=== PATIENT | female | born 1995 | race Caucasian/White ===

== ENCOUNTER 2022-04-20 12:12 | Emergency (ER) | payer OTHER, MEDICAID, SELFPAY ==
[2022-04-20 12:12] VITALS: BP 162/100; PULSE 70; RESP 16; TEMP 36.4; O2SAT 98; BMI 23.9
--- NOTE | 2022-04-20 12:22 | CT_ITS ---
EXAM: CT ABDOMEN AND PELVIS WITHOUT INTRAVENOUS CONTRAST CLINICAL INDICATION: Right abdominal pain for years. TECHNIQUE: Helically acquired images were obtained of the abdomen and pelvis without intravenous contrast. This CT exam was performed using one or more of the following dose reduction techniques: automated exposure control, adjustment of the mA and/or kV according to patient size, and/or use of iterative reconstruction technique. This report was created using [employer] report generation technology. RADIATION DOSE: CTDIvol = 6.22 mGy, DLP = 279.77 mGy-cm COMPARISON: None. FINDINGS: LOWER THORAX: Unremarkable. Lung bases are clear. No cardiomegaly. No significant pericardial effusion. ABDOMEN: LIVER: Unremarkable. Homogeneous. GALLBLADDER AND BILE DUCTS: Suspicious prominent 2 cm hypodense gallstone with faint rim calcification in the gallbladder neck. No gallbladder dilatation. No pericholecystic fluid. PANCREAS: Unremarkable. No focal cystic mass. SPLEEN: Unremarkable. Normal size without focal cystic or solid mass. ADRENALS: Unremarkable. No nodules. KIDNEYS AND URETERS: Unremarkable. Normal renal size and position. No hydronephrosis. STOMACH AND BOWEL: Unremarkable. No stomach or bowel distention. No focal inflammatory change. PELVIS: APPENDIX: Normal. BLADDER: Unremarkable. REPRODUCTIVE: Unremarkable as visualized. No mass. ABDOMEN and PELVIS: INTRAPERITONEAL SPACE: Unremarkable. No ascites or other fluid collection. No free air. BONES/JOINTS: Unremarkable. No suspicious lytic or blastic abnormality. SOFT TISSUES: Unremarkable. No discrete abdominal or pelvic wall hernia. VASCULATURE: Unremarkable. Abdominal aorta is non-dilated. LYMPH NODES: Unremarkable. No enlarged lymph nodes. CT/Abdomen/Pelvis without Cont IMPRESSION: Suspicious 2 cm hypodense gallstone in the gallbladder neck with faint rim calcification. Gallbladder ultrasound will be helpful for further evaluation. Electronically Signed: Morales Rubio MD at 13:16 EST ,
--- NOTE | 2022-04-20 12:23 | ED.VIS.GI ---
HPI HPI - GI History of Present Illness Chief Complaint: Abd Pain Detail of Chief Complaint: Abdominal pain Informant: patient Narrative Narrative: Patient presents with abdominal pain is been going on for several years off-and-on. Over the last few months she states the pain is more frequent and typically is the right side of her abdomen. Patient had an episode this morning that was severe and lasted about an hour and so she comes in for evaluation. Her pain is currently resolved. She has not missed a menstrual period and her last 1 was about a week ago. She denies any fever. She denies vomiting although intermittently she has had some nausea. She has not noticed that food affects the pain at all. Patient denies urinary symptoms. Prior similar symptoms: Yes PFSH [facility] Medical History (Updated 04/20/22 @ 16:[address] Tristan Bunch DO) Shingles rash Home Medications methylprednisolone 4 mg tablets in a dose pack (Medrol (Todd)) See Rx Instructions PO PER PKG DIR #21 tabs 07/05/20 [Rx Last Taken Unknown] valacyclovir 1 gram tablet 1,000 mg PO TID #21 tabs 07/05/20 [Rx Last Taken Unknown] Allergy/AdvReac Type Severity Reaction Status Date / Time No Known Allergies Allergy Verified 04/20/22 12:14 Surgical History (Updated 07/05/20 @ 12:20 by Kari Tovar RN) History of tonsillectomy Social History Smoking Status: Never smoker ROS ROS ED Review of Systems ROS Unobtainable: other Constitutional Constitutional ED: Reports lethargy; Denies chills, fever(s), sweats or weight loss Eyes Eyes: Denies blurry vision, change in vision or diplopia ENT ENT ED: Denies rhinorrhea or sore throat Cardiovascular Cardiovascular: Denies chest pain, orthopnea or racing heartbeat Respiratory/Chest Respiratory/Chest: Denies cough, dyspnea, dyspnea on exertion, orthopnea or sputum Gastrointestinal Gastrointestinal: Reports abdominal pain and nausea; Denies diarrhea or vomiting Genitourinary Genitourinary ED: Denies dysuria, hematuria or urinary frequency Musculoskeletal Musculoskeletal: Denies arthralgias, back pain, myalgias or neck pain Integumentary Denies abscess, Abrasions or rash Neurologic Neurologic: Denies headache(s) or weakness Psychiatric Psychiatric: Denies anxiety, depression or suicidal thoughts Endocrine Endocrinology: Denies polydipsia, polyphagia or polyuria Hematologic/Lymphatic Hematologic/Lymphatic: Denies easy bleeding, easy bruising or lymphadenopathy Allergic/Immunologic Allergic/Immunologic ED: Denies mouth swelling, tongue swelling or urticaria EXAM Physical Exam Const Vital Signs: 04/20/22 12:12 Temperature 97.6 F L Temperature Source Temporal Pulse Rate 70 Respiratory Rate 16 Blood Pressure 162/100 H Blood Pressure Mean 120 Pulse Ox 98 Oxygen Delivery Method Room Air Positive well nourished and well developed General Appearance ED: well developed and NAD HEENT Reports TM's clear and moist mucous membranes normocephalic and atraumatic; Negative for trauma or tenderness Tympanic Membrane ED: Yes TM's clear Eyes PERRL and EOMs intact bilaterally General Eye ED: Negative for pale conjunctiva or scleral icterus Neck no lymphadenopathy, supple and no JVD General: Negative for tenderness Chest Wall inspection of chest normal and palpation of chest normal Chest: Negative for tenderness Resp normal respiratory effort and clear to auscultation bilaterally Effort and Inspection: Negative for respiratory distress or pain with movement Auscultation: Negative for rhonchi, wheezes or diminished lung sounds Cardio regular rate, regular rhythm, S1 normal heart sound, S2 normal heart sound and no murmurs Peripheral Pulses: pulses 2+ throughout GI normal to inspection, nondistended, normoactive bowel sounds, soft to palpation, non-distended and no masses GI Narrative: Mild tenderness over right lower quadrant with some guarding. There is no rebound, rigidity, or. Signs. She has a negative Cobos sign. No significant tenderness to the right upper quadrant. Back/Spine no CVA tenderness and no thoracic nor lumbar tenderness Extremity normal to inspection General Extremety ED: Negative for edema General Extremity: Negative for edema Neuro oriented x3, CN's II-XII intact bilaterally, no sensory deficits noted and gait normal Sensorium / Orientation: awake, alert, oriented to person, oriented to place and oriented to time Motor Exam: strength 5/5 throughout and strength abnormal Psych mental status grossly normal Skin no rashes or lesions noted and no wounds MDM MDM MDM Narrative Medical decision making narrative: We will establish on arrival. Patient did not require anything for pain as her pain had resolved. Her initial exam was quite benign but she had some nondescript discomfort to the right side of the abdomen diffusely. CBC with differential was normal. LFTs were normal. Lipase was normal. hCG was negative. Urinalysis was unremarkable. CT scan of the abdomen pelvis initially obtained showed possible gallstones in the neck of the gallbladder and they recommended obtaining an ultrasound to evaluate further. Gallbladder ultrasound performed showed cholelithiasis with wall thickening but no sonographic evidence of biliary obstruction or definite acute cholecystitis. Patient remains pain-free in the department. I suspect her symptoms likely related to cholelithiasis. I discussed case with general surgeon on-call Dr. Annette Merida who will have patient follow-up with her as an outpatient for further evaluation. Patient comfortable with plan. She is advised to avoid spicy and greasy foods. Lab Data Attestation: I reviewed the patient's lab results. Labs: Laboratory Results - last 24 hr 04/20/22 04/20/22 04/20/22 12:30 12:30 12:30 WBC 7.9 RBC 4.51 Hgb 12.6 Hct 39.1 MCV 86.7 MCH 27.9 MCHC 32.2 RDW Std Deviation 38.1 RDW Coeff of Anita 12.0 Plt Count 329 MPV 9.1 Immature Gran % (Auto) 0.300 Neut % (Auto) 69.7 Lymph % (Auto) 22.7 Dukes % (Auto) 5.1 Eos % (Auto) 1.4 Baso % (Auto) 0.8 Absolute Neuts (auto) 5.5 Absolute Lymphs (auto) 1.80 Nucleated RBC % 0 Sodium 138 Potassium 4.1 Chloride 108 H Carbon Dioxide 26.0 Anion Gap 4 L BUN 12 Creatinine 0.72 Estim Creat Clear Calc 95.37 Est GFR (MDRD) Af Amer 122 Est GFR (MDRD) Non-Af 101 BUN/Creatinine Ratio 16.6 Glucose 118 H Calcium 8.7 Total Bilirubin 0.30 AST 10 L ALT 14 Alkaline Phosphatase 59 Total Protein 7.3 Albumin 3.8 Globulin 3.5 Albumin/Globulin Ratio 1.1 Lipase 143 Serum , Qual NEGATIVE Urine Color Urine Clarity Urine pH Ur Specific [place] Urine Protein Urine Glucose (UA) Urine Ketones Urine Occult Blood Urine Nitrite Urine Bilirubin Urine Urobilinogen Ur Leukocyte Esterase Urine RBC Urine WBC Ur Squamous Epith Cells Urine Bacteria Urine Mucus 04/20/22 12:35 WBC RBC Hgb Hct MCV MCH MCHC RDW Std Deviation RDW Coeff of Anita Plt Count MPV Immature Gran % (Auto) Neut % (Auto) Lymph % (Auto) Dukes % (Auto) Eos % (Auto) Baso % (Auto) Absolute Neuts (auto) Absolute Lymphs (auto) Nucleated RBC % Sodium Potassium Chloride Carbon Dioxide Anion Gap BUN Creatinine Estim Creat Clear Calc Est GFR (MDRD) Af Amer Est GFR (MDRD) Non-Af BUN/Creatinine Ratio Glucose Calcium Total Bilirubin AST ALT Alkaline Phosphatase Total Protein Albumin Globulin Albumin/Globulin Ratio Lipase Serum , Qual Urine Color Yellow Urine Clarity Sl. Cloudy Urine pH 6.0 Ur Specific [place] 1.020 Urine Protein 15 H Urine Glucose (UA) Normal Urine Ketones Negative Urine Occult Blood 10 H Urine Nitrite Negative Urine Bilirubin Negative Urine Urobilinogen Normal Ur Leukocyte Esterase 500 H Urine RBC 0 SEEN Urine WBC 5-10 SEEN Ur Squamous Epith Cells 0-5 SEEN Urine Bacteria 1+ Urine Mucus 0 SEEN Radiography Diagnostic Testing: Clinical Impression(s) from Imaging Studies Abdomen/Pelvis CT 04/20/22 12:22 IMPRESSION: Suspicious 2 cm hypodense gallstone in the gallbladder neck with faint rim calcification. Gallbladder ultrasound will be helpful for further evaluation. Electronically Signed: Morales Rubio MD at 13:16 EST , Gallbladder Ultrasound 04/20/22 13:25 IMPRESSION: Cholelithiasis with wall thickening. No sonographic evidence of biliary obstruction or definite acute cholecystitis. Electronically Signed: Shahzad Reyes MD at 15:59 EST , Discharge Plan Triage Chief Complaint: Abd Pain ED Provider: Tristan Bunch Dx/Rx/DC Orders Clinical Impression: Abdominal pain, Cholelithiasis Instructions: Gallstones Dc, ED Gallstones with Biliary Colic Prescriptions: No Action valacyclovir 1 gram tablet 1,000 mg PO TID Qty: 21 0RF methylprednisolone [Medrol (Todd)] 4 mg tablets,dose pack See Rx Instructions PO PER PKG DIR Qty: 21 0RF Rx Instructions: PO PER PKG DIR Primary Care Provider: Angelo Blair Referrals: Angelo Blair MD [Primary Care Provider] - Annette Merida MD [Med Staff - Active Staff] - 3-5 Days Disposition Disposition: Home, Self Care
[2022-04-20 12:38] LABS: Absolute Neutrophil Count 5.5 X10^3/uL (2.0-7.7); Basophil# 0.06 X10^3/uL; Basophil% 0.8 % (0-1); Eosinophil# 0.11 X10^3/uL; Eosinophils% 1.4 % (0-5); Hematocrit 39.1 % (37-47); Hemoglobin 12.6 g/dL (12.0-15.0); Lymphocyte % 22.7 % (19-41); Mean Corp Hgb Conc 32.2 g/dL (32-36); Mean Corpuscular Hgb 27.9 pg (27.0-32.0); Mean Corpuscular Volume 86.7 fL (81-99); Mean Platelet Vol. 9.1 fl (6.2-12.0); Monocyte% 5.1 % (0-10); NRBC Flagged by Analyzer 0 % (0-5); Neutrophil # 5.53 X10^3/uL (2.7-7.7); Neutrophil % 69.7 % (47-70); Platelet Count 329 K/mm3 (150-450); RBC Distribution Width SD 38.1 fl (35.1-43.9); Red Blood Count 4.51 M/mm3 (4.2-5.4); White Blood Count 7.9 K/mm3 (4.4-11.0)
[2022-04-20 12:43] LABS: Mucous, Urine 0 SEEN /hpf (<or=2+); Red Blood Cells-Urine 0 SEEN /hpf (0-5)
[2022-04-20] MEDS: 0.9% Normal Saline 1,000 ML 125 ML IV (12:44)
[2022-04-20 12:54] LABS: Color, Urine Yellow (Yellow); Glucose, Dipstick Normal (Normal); Ketone-Dipstick Negative (Negative); Leukocyte Esterase-Dipstick 500 /ul (Negative); Nitrite-Dipstick Negative (Negative); Occult Blood-Urine 10 /ul (Negative); Protein-Dipstick 15 mg/dl (Negative); Urine Bilirubin Dipstick Negative (Negative); Urine Clarity Sl. Cloudy (Clear); Urine Urobilinogen Normal (Normal)
[2022-04-20 12:55] LABS: ALB/GLOB Ratio 1.1 RATIO (0.9-2.4); AST(SGOT) 10 U/L (15-37); Alanine Aminotransfer ALT/SGPT 14 U/L (13-56); Albumin, Serum 3.8 g/dL (3.2-5.0); Alkaline Phosphatase 59 U/L (45-117); Anion Gap 4 (5-15); BUN 12 mg/dL (7-18); BUN/Creat Ratio 16.6 RATIO (10-20); Calcium,Total 8.7 mg/dL (8.5-10.1); Chloride 108 mmol/L (98-107); Creatinine, Serum 0.72 mg/dL (0.55-1.02); EST Glomerular Filtration Rate 101 mL/min (>60); Est Glom Filt Rate - Afr Amer 122 mL/min (>60); Estimated Creatinine Clearance 95.37 ml/min; Globulin 3.5 g/dL (2.2-4.2); Glucose 118 mg/dL (74-106); Lipase 143 U/L (73-393); Potassium 4.1 mmol/L (3.5-5.1); Protein, Total 7.3 g/dL (6.4-8.2); Sodium Level 138 mmol/L (136-145)
[2022-04-20 12:56] LABS: Internal QC Validated? YES +Cl - CLEAR BKGD; Pregnancy, Serum, hCG Quali. NEGATIVE Negative
[2022-04-20 13:07] LABS: Bacteria 1+ /hpf (None Seen); Squamous Epithelial Cells - UA 0-5 SEEN /hpf (5-10); White Blood Cells 5-10 SEEN /hpf (0-5)
--- NOTE | 2022-04-20 13:25 | US_ITS ---
INDICATION: Right upper quadrant pain EXAMINATION: Ultrasound US Gallbladder (abdomen limited) TECHNIQUE: Torres scale and color doppler imaging was performed of the gallbladder. COMPARISON: CT abdomen and pelvis same date FINDINGS: Liver normal size with diffusely increased echotexture and normal portal venous blood flow. Multiple shadowing gallstones with thickening of the gallbladder wall to 9 mm. The proximal common bile duct measures 4 mm, which is within normal limits for the patient''s age. Sonographic Cobos''s Sign: Negative. US/Gallbladder IMPRESSION: Cholelithiasis with wall thickening. No sonographic evidence of biliary obstruction or definite acute cholecystitis. Electronically Signed: Shahzad Reyes MD at 15:59 EST ,
== END 2022-04-20 16:23 | disposition home or self-care (01) ==
PROVIDERS: Emergency Provider Emergency Medicine; PCP Family Medicine; Visit Provider Emergency Medicine
DX: K80.20 Calculus of gallbladder without cholecystitis without obstruction (principal); R10.9 Unspecified abdominal pain
CPT/HCPCS: 74176; 76705; 80053; 81001; 83690; 84703; 85025; 99283; J7030; A4216